=== PATIENT | male | born 1960 | race Caucasian/White ===

== ENCOUNTER 2017-10-27 18:17 | Emergency (ER) | payer MEDICAID ==
[~2017-10-27] VITALS: Ht 167.6 cm; Wt 88.0 kg
[~2017-10-27 18:17] MED LIST: BAC10T PO; DIAZ5TAB PO; FLUO20CA39 PO; GABA-338 PO; TRAM50TA2 PO
[2017-10-27] MEDS ORDERED: SULF1TAB49 PO (19:24)
[2017-10-27] MEDS ORDERED: CYCL-1 PO (19:24)
[2017-10-27 19:35] VITALS: BP 173/99
== END 2017-10-27 19:37 | disposition home or self-care (01) ==
LOC: ER 18:18
DX: L03.114 Cellulitis of left upper limb (principal); G89.29 Other chronic pain; G62.9 Polyneuropathy, unspecified; F12.10 Cannabis abuse, uncomplicated; Z86.19 Personal history of other infectious and parasitic diseases; Z98.890 Other specified postprocedural states; Z59.0 Homelessness; Z88.0 Allergy status to penicillin; Z79.899 Other long term (current) drug therapy
CPT/HCPCS: 99283

== ENCOUNTER 2017-10-29 09:12 | Emergency (ER) | payer MEDICAID ==
[~2017-10-29] VITALS: Ht 167.6 cm; Wt 86.0 kg
[~2017-10-29 09:12] MED LIST changes: +CYCL-1 PO; +SULF1TAB49 PO
[2017-10-29] MEDS ORDERED: sulfamethoxazole/trimethoprim DS (800/160mg) tablet PO ONE (10:55)
[2017-10-29] MEDS ORDERED: SULF1TAB49 PO (11:06)
[2017-10-29] MEDS ORDERED: LACT1CAP65 PO (11:06)
[2017-10-29] MEDS ORDERED: HYDR-569 PO (11:25)
[2017-10-29 11:34] VITALS: BP 123/77
== END 2017-10-29 11:44 | disposition home or self-care (01) ==
LOC: ER 09:12
DX: L03.114 Cellulitis of left upper limb (principal); G89.29 Other chronic pain; G62.9 Polyneuropathy, unspecified; F12.10 Cannabis abuse, uncomplicated; Z59.0 Homelessness; Z98.890 Other specified postprocedural states; Z88.0 Allergy status to penicillin
CPT/HCPCS: 99283

== ENCOUNTER 2017-11-02 15:40 | Emergency (ER) | payer MEDICAID ==
[~2017-11-02] VITALS: Ht 167.6 cm; Wt 86.0 kg
[~2017-11-02 15:40] MED LIST changes: +HYDR-569 PO; +LACT1CAP65 PO
[2017-11-02] MEDS ORDERED: LIDOcaine 1.5% w/epinephrine 1:200,000 5ml ampul IJ ONE (17:00)
[2017-11-02 18:40] VITALS: BP 138/78
== END 2017-11-02 18:43 | disposition home or self-care (01) ==
LOC: ER 15:42
DX: L02.414 Cutaneous abscess of left upper limb (principal); G89.29 Other chronic pain; G62.9 Polyneuropathy, unspecified; F12.10 Cannabis abuse, uncomplicated; Z86.19 Personal history of other infectious and parasitic diseases; Z98.890 Other specified postprocedural states; Z59.0 Homelessness; Z88.0 Allergy status to penicillin; Z79.899 Other long term (current) drug therapy
CPT/HCPCS: 10060; 87070; 87077; 87186; 99284; A6446; A6449; J3490

== ENCOUNTER 2024-07-22 10:53 | Emergency (ER) | payer OTHER, MEDICAID ==
[~2024-07-22] VITALS: Ht 167.6 cm; Wt 93.5 kg
[~2024-07-22 10:53] MED LIST changes: +HYDR-4383 PO; -HYDR-569 PO; -SULF1TAB49 PO
[2024-07-22 11:21] LABS: BASOPHILS # (AUTO) 0.1 X10'3 (0-0.2); BASOPHILS % (AUTO) 0.8 % (0-1); EOSINOPHILS # (AUTO) 0.2 X10'3 (0-0.9); EOSINOPHILS % (AUTO) 3.1 % (0-6); HEMATOCRIT 47.3 % (42.0-52.0); HEMOGLOBIN 16.5 g/dl (14.0-17.9); LYMPHOCYTES % (AUTO) 30.1 % (21-51); MEAN CORPUSCULAR HEMOGLOBIN 32.6 PG (27.0-31.0); MEAN CORPUSCULAR HGB CONC 34.9 g/dL (33.0-36.5); MEAN CORPUSCULAR VOLUME 93.4 FL (78-98); MEAN PLATELET VOLUME 8.8 FL (7.4-10.4); MONOCYTES # (AUTO) 0.5 X10'3 (0-0.9); MONOCYTES % (AUTO) 7.6 % (2-12); NEUTROPHILS % (AUTO) 58.4 % (42-75); PLATELET COUNT 203 X10'3 (140-440); RED BLOOD COUNT 5.06 X10'6 (4.70-6.10); WHITE BLOOD COUNT 6.8 X10'3 (4.5-11.0)
[2024-07-22 11:37] LABS: ALANINE AMINOTRANSFERASE 158 U/L (12-78); ALBUMIN 3.7 G/DL (3.4-5.0); ALBUMIN/GLOBULIN RATIO 0.8 (1.1-1.5); ALKALINE PHOSPHATASE 113 IU/L (46-116); ANION GAP 8 (8-16); ASPARTATE AMINO TRANSFERASE 160 U/L (10-37); BILIRUBIN,TOTAL 2.1 MG/DL (0.1-1.0); BLOOD UREA NITROGEN 14 MG/DL (7-18); BUN/CREATININE RATIO 16.3 (10.0-20.0); CHLORIDE 105 MMOL/L (99-107); CREATININE 0.86 MG/DL (0.60-1.10); GLUCOSE 138 MG/DL (70-104); POTASSIUM 3.8 MMOL/L (3.5-5.1); SODIUM 137 MMOL/L (135-145); TOTAL CARBON DIOXIDE 24.4 MMOL/L (24-32); TOTAL PROTEIN 8.1 G/DL (6.4-8.2); eCRCL 77 ML/MIN; eGFR 89 ML/MIN
[2024-07-22 11:47] LABS: PRO BRAIN NATRIURETIC PEPTIDE 126 PG/ML (0-125)
[2024-07-22] MEDS ORDERED: LOSA-415 PO (12:50)
[2024-07-22 13:34] VITALS: BP 163/99; PULSE 88; RESP 16; TEMP 97.8; O2SAT 96
[2024-07-22] MEDS ORDERED: hyDRALAzine 10mg tablet PO SCH (16:00)
== END 2024-07-22 13:37 | disposition home or self-care (01) ==
LOC: ER 10:54
DX: I10 Essential (primary) hypertension (principal); G62.9 Polyneuropathy, unspecified; G89.29 Other chronic pain; M54.9 Dorsalgia, unspecified; F32.A Depression, unspecified; F12.90 Cannabis use, unspecified, uncomplicated; Z59.00 Homelessness unspecified; Z98.890 Other specified postprocedural states; Z88.0 Allergy status to penicillin; Z79.899 Other long term (current) drug therapy
CPT/HCPCS: 36415; 71045; 80053; 83880; 84484; 85025; 93005; 99285

== ENCOUNTER 2024-11-02 15:22 | Emergency (ER) | payer MEDICARE, MEDICAID ==
[~2024-11-02] VITALS: Ht 175.3 cm; Wt 80.0 kg
[2024-11-02 15:42] VITALS: BP 136/98; PULSE 95; RESP 18; TEMP 97.8; O2SAT 97
[2024-11-02] MEDS ORDERED: PRED20TA PO (16:44)
[2024-11-02] MEDS ORDERED: TRIA15CR61 TOP (16:44)
== END 2024-11-02 17:55 | disposition home or self-care (01) ==
LOC: ER 15:23
DX: L50.9 Urticaria, unspecified (principal); G62.9 Polyneuropathy, unspecified; F32.A Depression, unspecified; F12.90 Cannabis use, unspecified, uncomplicated; F10.90 Alcohol use, unspecified, uncomplicated; Z88.0 Allergy status to penicillin; Z98.890 Other specified postprocedural states; Y90.9 Presence of alcohol in blood, level not specified
CPT/HCPCS: 99283